=== PATIENT | female | born 1965 | race Caucasian/White ===

== ENCOUNTER 2018-07-01 18:02 | Emergency (ER) | payer BC ==
[~2018-07-01] VITALS: Ht 160 cm; Wt 72.1 kg
--- NOTE | 2018-07-01 19:19 | NUR ---
Assumed care of patient. no acute distress noted. VSS
[2018-07-01 20:11] LABS: BASOPHILS % (AUTO) 0.4 % (0.0-2.0); EOSINOPHILS # (AUTO) 0.2 K/uL (0.0-0.7); EOSINOPHILS % (AUTO) 1.5 % (0.0-7.0); HEMATOCRIT 38.7 % (31.2-41.9); HEMOGLOBIN 12.5 g/dL (10.9-14.3); LYMPHOCYTES # (AUTO) 3.6 K/uL (20.0-40.0); MEAN CORPUSCULAR HEMOGLOBIN 27.7 uug (24.7-32.8); MEAN CORPUSCULAR HGB CONC 32 g/dL (32.3-35.6); MEAN CORPUSCULAR VOLUME 85.4 fL (75.5-95.3); MONOCYTES # (AUTO) 0.8 K/uL (2.0-10.0); NEUTROPHILS # (AUTO) 8.6 K/uL (1.8-8.9); NEUTROPHILS % (AUTO) 65.1 % (38.5-71.5); PLATELET COUNT (AUTO) 446 K/uL (179-408); RED BLOOD CELL COUNT(AUTO) 4.52 MIL/uL (3.63-4.92); WHITE BLOOD COUNT (AUTO) 13.2 K/uL (3.8-11.8)
--- NOTE | 2018-07-01 20:13 | NUR ---
Patient in bed, no acute distress noted. VSS
[2018-07-01 20:20] LABS: CREATININE 0.6 mg/dL (0.6-1.3); POTASSIUM 3.7 mmol/L (3.5-5.1)
[2018-07-01 20:26] LABS: BILIRUBIN,DIRECT 0.1 mg/dL (0.0-0.2); BILIRUBIN,TOTAL 0.2 mg/dL (0.2-1.0); TOTAL PROTEIN, SERUM 7.9 g/dL (6.4-8.2)
--- NOTE | 2018-07-01 20:48 | NUR ---
dPatient discharged to home in stable conditon. Written and verbal after care instructions given. Patient verbalizes understanding of instructions. Ambulated from ER with stable gait. All belongings with patient.
[2018-07-01 20:49] VITALS: BP 121/78
== END 2018-07-01 20:50 | disposition home or self-care (01) ==
LOC: ER 18:02
DX: M54.6 Pain in thoracic spine (principal)
CPT/HCPCS: 36415; 85025; 93005; A4663

== ENCOUNTER 2020-11-11 15:07 | Inpatient (IN) | payer BC ==
[~2020-11-11] VITALS: Ht 157.5 cm; Wt 83.9 kg
--- NOTE | 2020-11-11 15:58 | NUR ---
Pt out of Er for CT.
--- NOTE | 2020-11-11 16:10 | NUR ---
Pt back from CT. Resting in bed.
[2020-11-11 16:14] LABS: *BLOOD, URINE TRACE LYSED (NEGATIVE); *CLARITY,URINE CLEAR (CLEAR); *COLOR,URINE YELLOW (YELLOW); PH,URINE 5.5 (5.0-8.0); UGLUCOSE NEGATIVE (NEGATIVE)
[2020-11-11 16:15] LABS: *BILIRUBIN,URIN NEGATIVE (NEGATIVE); *KETONES,URINE NEGATIVE (NEGATIVE); *URINE HCG, QUAL NEGATIVE (NEGATIVE); *UROBILINOGEN,URINE 0.2 E.U./dl (NORMAL); LEUKOCYTE ESTERASE ,URINE NEGATIVE (NEGATIVE); NITRITE, URINE NEGATIVE (NEGATIVE)
[2020-11-11 16:48] LABS: HEMATOCRIT 40.6 % (31.2-41.9); MEAN CORPUSCULAR HEMOGLOBIN 28.2 uug (24.7-32.8); MEAN CORPUSCULAR VOLUME 85.8 fL (75.5-95.3); PLATELET COUNT (AUTO) 501 K/uL (179-408)
[2020-11-11 16:51] LABS: CREATININE 0.7 mg/dL (0.6-1.3); POTASSIUM 4.4 mmol/L (3.5-5.1)
[2020-11-11 16:57] LABS: BILIRUBIN,DIRECT 0.1 mg/dL (0.0-0.2); BILIRUBIN,TOTAL 0.3 mg/dL (0.2-1.0); TOTAL PROTEIN, SERUM 8.2 g/dL (6.4-8.2)
--- NOTE | 2020-11-11 19:13 | NUR ---
Report recieved from ARCENIO Francis.
[2020-11-11] MEDS ORDERED: ACETAMINOPHEN ES 500 MG TABLET ONE (21:14)
[2020-11-11] MEDS ORDERED: HYDROCODONE/APAP 5-325MG TABLET PO PRN (21:15)
[2020-11-11] MEDS ORDERED: ONDANSETRON 4 MG/2 ML VIAL IV PRN (21:15)
[2020-11-11] MEDS ORDERED: TEMAZEPAM 15 MG CAPSULE PO PRN (21:15)
[2020-11-11] MEDS ORDERED: ACETAMINOPHEN ES 500 MG TABLET PO ONE (21:15)
--- NOTE | 2020-11-12 00:09 | NUR ---
Pt denies chest pain, sob, any symptoms. No signs of distress. Will continue to monitor.
--- NOTE | 2020-11-12 02:55 | NUR ---
Pt. sleeping. No changes in condition, denies chest pain. Vss. Will continue to monitor.
[2020-11-12] MEDS: ACETAMINOPHEN 325 MG TABLET PO PRN ×2 (05:28→09:26)
[2020-11-12] MEDS ORDERED: ACETAMINOPHEN 325 MG TABLET ONE ×2 (05:32→09:21)
[2020-11-12 05:50] LABS: HEMATOCRIT 40.2 % (31.2-41.9); MEAN CORPUSCULAR HEMOGLOBIN 28.4 uug (24.7-32.8); MEAN CORPUSCULAR VOLUME 86.1 fL (75.5-95.3); PLATELET COUNT (AUTO) 481 K/uL (179-408)
--- NOTE | 2020-11-12 05:50 | NUR ---
Pt returned from CT
[2020-11-12 06:28] LABS: BILIRUBIN,TOTAL 0.5 mg/dL (0.2-1.0); CREATININE 0.7 mg/dL (0.6-1.3); MAGNESIUM 2.2 mg/dL (1.8-2.4); PHOSPHOROUS 4.3 mg/dL (2.5-4.9); TOTAL PROTEIN, SERUM 7.8 g/dL (6.4-8.2)
[2020-11-12] MEDS ORDERED: PANTOPRAZOLE SODIUM 40 MG TABLET.DR PO ONE (06:29)
[2020-11-12 06:33] LABS: THYROID STIMULATING HORMONE 2.76 mIU/mL (0.358-3.740)
[2020-11-12] MEDS ORDERED: PANTOPRAZOLE SODIUM 40 MG TABLET.DR PO SCH (07:00)
--- NOTE | 2020-11-12 10:08 | NUR ---
IV removed. Catheter intact and site benign. Pressure and 4x4 gauze applied to site. No bleeding noted.
--- NOTE | 2020-11-12 10:09 | NUR ---
Patient does not wish to proceed with medical care recommended by Dr. Paredes. Patient given information related to possible complications, up to and including , which could occur as a result of leaving the hospital at this time. Patient verbalizes understanding of risks involved due to leaving against medical advice. Pt states she is pain free, she has spoken to her primary physician and has arranged follow up. Patient has signed AMA form. Dr. Paredes notified.
== END 2020-11-12 10:09 | disposition left against medical advice (07) | DRG 291 ==
LOC: ER 15:07 → TRANSITION 21:25
PROVIDERS: ADMIT Nurse Practitioner Acute Care; ATTEND Nurse Practitioner Acute Care
DX: I50.33 Acute on chronic diastolic (congestive) heart failure (principal); J96.00 Acute respiratory failure, unspecified whether with hypoxia or hypercapnia; E78.5 Hyperlipidemia, unspecified; Z90.49 Acquired absence of other specified parts of digestive tract; Z20.822 Contact with and (suspected) exposure to COVID-19; D72.829 Elevated white blood cell count, unspecified; R07.89 Other chest pain
CPT/HCPCS: 36415; 70030-TC; 71045; 83735; 84100; 84443; 84703; 85025; 93005; A4663; A9150; G0378; U0003